=== PATIENT | male | born 1990 | race Caucasian/White ===

== ENCOUNTER 2017-02-04 13:44 | Emergency (ER) | payer MEDICAID ==
[~2017-02-04] VITALS: Ht 167.6 cm; Wt 81.8 kg
[2017-02-04] MEDS ORDERED: METF500T4 PO (14:00)
[2017-02-04 14:08] LABS: GLUCOSE,POINT OF CARE 322 MG/DL (70-110)
[2017-02-04 14:41] VITALS: BP 131/70
[2017-02-04] MEDS ORDERED: HYDROCODONE/ACETAMINOPHEN 5-325 MG TABLET PO ONE (15:00)
== END 2017-02-04 16:09 | disposition home or self-care (01) ==
LOC: EMS 13:44
DX: S93.401A Sprain of unspecified ligament of right ankle, initial encounter (principal); E11.9 Type 2 diabetes mellitus without complications; F17.210 Nicotine dependence, cigarettes, uncomplicated; X58.XXXA Exposure to other specified factors, initial encounter; Y93.01 Activity, walking, marching and hiking; Y92.488 Other paved roadways as the place of occurrence of the external cause; Y99.8 Other external cause status
CPT/HCPCS: 82962; 99284

== ENCOUNTER 2017-03-18 12:22 | Emergency (ER) | payer MEDICAID ==
[~2017-03-18] VITALS: Ht 165.1 cm; Wt 81.8 kg
[~2017-03-18 12:22] MED LIST: METF500T4 PO
[2017-03-18 12:58] LABS: GLUCOSE,POINT OF CARE 303 MG/DL (70-110)
[2017-03-18 13:34] LABS: INFLUENZA TYPE A NEGATIVE FOR TYPE A (NEGATIVE); INFLUENZA TYPE B NEGATIVE FOR TYPE B (NEGATIVE)
[2017-03-18 14:41] VITALS: BP 138/97
== END 2017-03-18 15:23 | disposition home or self-care (01) ==
LOC: EMS 12:24
DX: J06.9 Acute upper respiratory infection, unspecified (principal); E11.9 Type 2 diabetes mellitus without complications; F17.210 Nicotine dependence, cigarettes, uncomplicated; Z76.0 Encounter for issue of repeat prescription
CPT/HCPCS: 82962; 87804; 99284

== ENCOUNTER 2017-09-27 04:08 | Emergency (ER) | payer MEDICAID, OTHER ==
[~2017-09-27] VITALS: Ht 165.1 cm; Wt 81.0 kg
[~2017-09-27 04:08] MED LIST changes: -METF500T4 PO; +METF500T6 PO
[2017-09-27 05:03] LABS: GLUCOSE,POINT OF CARE 273 MG/DL (70-110)
[2017-09-27 06:20] VITALS: BP 120/88
== END 2017-09-27 06:26 | disposition home or self-care (01) ==
LOC: EMS 04:10
DX: S56.911A Strain of unspecified muscles, fascia and tendons at forearm level, right arm, initial encounter (principal); S56.912A Strain of unspecified muscles, fascia and tendons at forearm level, left arm, initial encounter; S66.911A Strain of unspecified muscle, fascia and tendon at wrist and hand level, right hand, initial encounter; S66.912A Strain of unspecified muscle, fascia and tendon at wrist and hand level, left hand, initial encounter; E11.9 Type 2 diabetes mellitus without complications; X50.0XXA Overexertion from strenuous movement or load, initial encounter; Y93.89 Activity, other specified; Y92.89 Other specified places as the place of occurrence of the external cause; Y99.8 Other external cause status
CPT/HCPCS: 99283

== ENCOUNTER 2017-09-27 09:04 | Emergency (ER) | payer MEDICAID ==
[~2017-09-27] VITALS: Ht 165.1 cm; Wt 81.8 kg
[2017-09-27 09:19] LABS: GLUCOSE,POINT OF CARE 222 MG/DL (70-110)
[2017-09-27 10:27] VITALS: BP 124/76
== END 2017-09-27 10:50 | disposition home or self-care (01) ==
LOC: EMS 09:04
DX: M93.922 Osteochondropathy, unspecified, left upper arm (principal); E11.9 Type 2 diabetes mellitus without complications
CPT/HCPCS: 99283